=== PATIENT | female | born 1945 | race Caucasian/White ===

== ENCOUNTER → 2017-06-16 | Outpatient (CLI) | payer MEDICARE, OTHER | END | disposition home or self-care (01) | LOC: GMAM 14:45 | PROVIDERS: ATTEND Family Medicine | DX: R63.5 Abnormal weight gain (principal) ==

== ENCOUNTER → 2018-03-01 | Outpatient (CLI) | payer MEDICARE, OTHER | LOC: GMAM 14:13 | PROVIDERS: ATTEND Family Medicine | DX: D64.9 Anemia, unspecified (principal) ==

== ENCOUNTER → 2020-07-30 | Outpatient (CLI) | payer MEDICARE, OTHER | LOC: GMAM 15:18 | PROVIDERS: ATTEND Family Medicine | DX: D64.9 Anemia, unspecified (principal); D51.9 Vitamin B12 deficiency anemia, unspecified ==